=== PATIENT | male | born 1965 | race Caucasian/White ===

== ENCOUNTER 2017-11-08 11:51 | Emergency (ER) | payer OTHER ==
[2017-11-08] MEDS ORDERED: Ondansetron HCl/PF 4 MG/2 ML Vial ONE (12:07)
[2017-11-08 12:13] LABS: #Basophils 0.1 thou/uL (0.0-0.2); #Monocytes 0.8 thou/uL (0.11-0.59); #Neutrophils 5.9 thou/uL (1.40-6.50); %Basophils 0.6 % (0.0-1.0); %Eosinophils 0.5 % (0.0-10.0); %Lymphocytes 30.6 % (21.0-51.0); %Monocytes 7.7 % (0.0-10.0); %Neutrophils 60.7 % (42.0-75.0); Hemoglobin 16.1 g/dL (14.0-18.0); Mean Corpuscular HGB CONC 33.3 g/dL (32.0-36.0); Mean Corpuscular Hemoglobin 29.9 pg (27.0-31.0); Mean Corpuscular Volume 89.6 fl (80.0-94.0); Mean Platelet Volume 6.7 fL (7.4-10.4); Platelet Count 435 thou/uL (130-400); RBC Distribution Width 11.5 % (11.5-14.5); White Blood Cell (WBC) Count 9.7 thou/uL (4.8-10.8)
--- NOTE | 2017-11-08 12:22 | CT ---
CT CERVICAL SPINE: Date: 11/08/17 Multiple axial tomograms obtained through the cervical spine with multiplanar reconstruction. HISTORY: Level II trauma. Crush injury while at work. FINDINGS: The cervical vertebra maintain normal height and alignment. No evidence of cervical spine fracture. IMPRESSION: No evidence of acute cervical spine fracture. POS: [facility]
[2017-11-08 12:36] LABS: ALT (SGPT) 26 U/L (8-55); AST (SGOT) 23 U/L (5-34); Albumin 4.3 g/dL (3.5-5.0); Alkaline Phosphatase 58 U/L (40-150); Anion Gap 20 mmol/L (10-20); BUN (Urea Nitrogen) 26 mg/dL (8.4-25.7); Bilirubin, Total 1.2 mg/dL (0.2-1.2); Calc. Creatinine Clearance 0 mL/min (70-130); Calcium 9.7 mg/dL (7.8-10.44); Carbon Dioxide 17 mmol/L (22-29); Chloride 105 mmol/L (98-107); Estimated GFR-MDRD 76; Globulin 2.3 g/dL (2.4-3.5); Glucose 133 mg/dL (70-105); Lipase 47 U/L (8-78); Potassium 3.3 mmol/L (3.5-5.1); Protein, Total 6.6 g/dL (6.0-8.3); Sodium 139 mmol/L (136-145)
[2017-11-08 12:50] LABS: INR-International Normal Ratio 1.1; PTT 26.5 SEC (22.9-36.1)
--- NOTE | 2017-11-08 12:55 | CT ---
CT CHEST AND ABDOMEN AND PELVIS WITHOUT IV CONTRAST: HISTORY: Level II trauma. Crush injury at work. TECHNIQUE: Multiple axial tomograms obtained through the chest, abdomen, and pelvis without IV enhancement. Tra [facility] protocol was followed. IV contrast was not given due to an iodine allergy. FINDINGS: CHEST: The lung avilez are clear. There is no effusion, pneumothorax, contusion, or other parenchym al opacity. The mediastinum appears unremarkable. The bony thorax appears intact. ABDOMEN AND PELVIS: The liver, spleen, pancreas, and kidneys are unremarkable. No evidence of solid organ injury. No free blood or fluid seen in the abdomen or pelvis. Bowel loops are unremarkable. The aorta is unremarkable. The bony pelvis appears intact. THORACIC AND LUMBAR SPINE: Thoracic and lumbar vertebrae maintain normal height and alignment. No c ompression deformity. No acute fracture identified. IMPRESSION: 1. No acute chest injury identified. 2. No acute abdominal injury identified. The findings were relayed to Dr. Sher. CODE CR POS: [facility]
[2017-11-08] MEDS ORDERED: Ketorolac Tromethamine 30 MG/ML VIAL ONE (13:00)
== END 2017-11-08 13:25 | disposition home or self-care (01) ==
LOC: ERS 11:51
DX: S30.0XXA Contusion of lower back and pelvis, initial encounter (principal); F17.220 Nicotine dependence, chewing tobacco, uncomplicated; W23.0XXA Caught, crushed, jammed, or pinched between moving objects, initial encounter
CPT/HCPCS: 71250; 72125; 74177; 80053; 83690; 85025; 85610; 85730; 86850; 86900; 86901; 93005; 94760; 96374; 96375; G0390; J1885; J2405